=== PATIENT | male | born 1935 | race Caucasian/White ===

== ENCOUNTER 2017-09-05 17:40 | Observation (INO) | payer MEDICARE, OTHER ==
[~2017-09-05] VITALS: Ht 190.5 cm; Wt 72.7 kg
[2017-09-05] MEDS ORDERED: PRAVACHOL40 MG PO (17:49)
[2017-09-05] MEDS ORDERED: NORVASC5 MG PO (17:50)
[2017-09-05 18:07] LABS: BASOPHILS 0.5 % (0-2); EOSINOPHILS 8.7 % (0-7); HEMATOCRIT 44.6 % (42.0-54.0); HEMOGLOBIN 15.1 g/dL (13.5-17.5); MCH 30.5 pg (26.0-34.0); MCHC 33.9 g/dL (31.0-37.0); MCV 90.1 fL (80.0-100.0); MEAN PLATELET VOLUME 9.7 fL (7.4-10.4); NEUTROPHILS 52.8 % (40-80); PLATELET COUNT 179 10x3/uL (130-400); RBC 4.95 10x6/uL (4.20-6.10); RDW 12.9 % (11.5-14.5); WBC 5.7 10x3/uL (4.8-10.8)
[2017-09-05 18:38] LABS: ALBUMIN 4.2 g/dL (3.4-5.0); ANION GAP 10.1 mmol/L (8-16); BILIRUBIN - TOTAL 0.39 mg/dL (0.2-1.3); CALCIUM 8.7 mg/dL (8.5-10.1); CREATININE - SERUM 1.2 mg/dL (0.6-1.3); POTASSIUM - SERUM 4.1 mmol/L (3.5-5.1); PROTEIN - SERUM 8.2 g/dL (6.4-8.2)
[2017-09-05 18:52] LABS: CKMB 1.8 U/L (0.0-3.6); CREATINE KINASE 89 UL (21-232); TROPONIN-I < 0.017 ng/mL (0.000-0.060)
[2017-09-05 19:00] VITALS: BP 165/94
[2017-09-05 20:00] VITALS: BP 122/75
[2017-09-05 20:24] LABS: APPEARANCE CLEAR (CLEAR); BILIRUBIN NEGATIVE (NEGATIVE); COLOR STRAW (YELLOW); GLUCOSE NEGATIVE (NEGATIVE); KETONE NEGATIVE (NEGATIVE); NITRITE NEGATIVE (NEGATIVE); PROTEIN NEGATIVE (NEGATIVE); UROBILINOGEN NORMAL (NORMAL)
[2017-09-05 21:00] VITALS: BP 114/81
[2017-09-05 23:16] LABS: CKMB 1.3 U/L (0.0-3.6); CREATINE KINASE 70 UL (21-232)
[2017-09-05 23:21] LABS: TROPONIN-I < 0.017 ng/mL (0.000-0.060)
[2017-09-06 02:45] VITALS: BP 132/74; Ht 190.5 cm; Wt 72.7 kg
[2017-09-06] MEDS ORDERED: BAYER CHEWABLE81 MG PO (03:39)
[2017-09-06] MEDS ORDERED: RESTASIS EYE DR30 EA EACH EYE (03:41)
[2017-09-06] MEDS ORDERED: TRAVATAN Z2.5 ML LEFT EYE (03:42)
[2017-09-06] MEDS ORDERED: COSOPT EYE DROPS5 ML EACH EYE (03:43)
[2017-09-06 05:21] LABS: BASOPHILS 0.4 % (0-2); EOSINOPHILS 6.1 % (0-7); HEMATOCRIT 39.8 % (42.0-54.0); HEMOGLOBIN 12.9 g/dL (13.5-17.5); IMMATURE GRANULOCYTES 0.2 % (0-5); LYMPHOCYTES 34.2 % (15-50); MCH 29.4 pg (26.0-34.0); MCHC 32.4 g/dL (31.0-37.0); MCV 90.7 fL (80.0-100.0); MEAN PLATELET VOLUME 9.8 fL (7.4-10.4); MONOCYTES 8.7 % (2-11); NEUTROPHILS 50.4 % (40-80); PLATELET COUNT 146 10x3/uL (130-400); RBC 4.39 10x6/uL (4.20-6.10); WBC 5.4 10x3/uL (4.8-10.8)
[2017-09-06 05:50] LABS: ALBUMIN 3.4 g/dL (3.4-5.0); ALKALINE PHOSPHATASE 58 U/L (46-116); ALT (SGPT) 20 U/L (10-68); BILIRUBIN - TOTAL 0.41 mg/dL (0.2-1.3); CALC OSMOLALITY 289 mosm/kg (275-300); CALCIUM 8.6 mg/dL (8.5-10.1); CARBON DIOXIDE 31.2 mmol/L (21.0-32.0); CHLORIDE - SERUM 107 mmol/L (98-107); CREATINE KINASE 50 UL (21-232); CREATININE - SERUM 1.1 mg/dL (0.6-1.3); GLUCOSE 105 mg/dL (74-106); POTASSIUM - SERUM 4.5 mmol/L (3.5-5.1); PROTEIN - SERUM 6.6 g/dL (6.4-8.2); SODIUM 144 mmol/L (136-145); UREA NITROGEN 21 mg/dL (7-18); eGFR NON AFRICAN AMERICAN 68 mL/min (90-120)
[2017-09-06 05:55] LABS: TROPONIN-I < 0.017 ng/mL (0.000-0.060)
[2017-09-06 06:57] VITALS: BP 120/70
[2017-09-06 08:03] VITALS: BP 129/79
[2017-09-06 11:20] VITALS: BP 132/72
[2017-09-06 11:24] LABS: CKMB 1.2 U/L (0.0-3.6); CREATINE KINASE 53 UL (21-232); TROPONIN-I < 0.017 ng/mL (0.000-0.060)
[2017-09-07] MEDS ORDERED: CATAPRES0.1 MG PO (19:39)
== END 2017-09-06 14:53 | disposition home or self-care (01) ==
LOC: D.ER 17:40 → OBSVTIME 22:17 → D.M2 22:17
PROVIDERS: Family Medicine
DX: I16.9 Hypertensive crisis, unspecified (principal); Z87.891 Personal history of nicotine dependence

== ENCOUNTER 2017-09-07 19:07 | Emergency (ER) | payer MEDICARE, OTHER ==
[~2017-09-07] VITALS: Ht 190.5 cm; Wt 72.7 kg
[~2017-09-07 19:07] MED LIST: BAYER CHEWABLE81 MG PO; COSOPT EYE DROPS5 ML EACH EYE; NORVASC5 MG PO; PRAVACHOL40 MG PO; RESTASIS EYE DR30 EA EACH EYE; TRAVATAN Z2.5 ML LEFT EYE
[2017-09-07 19:15] VITALS: Ht 190.5 cm; Wt 72.7 kg
[2017-09-07] MEDS ORDERED: CATAPRES0.1 MG PO (19:39)
[2017-09-07 20:00] VITALS: BP 148/75
== END 2017-09-07 20:00 | disposition home or self-care (01) ==
LOC: D.ER 19:07
DX: I10 Essential (primary) hypertension (principal)